=== PATIENT | female | born 1995 | race Asian ===

== ENCOUNTER 2021-03-04 21:16 | Emergency (ER) | payer OTHER, SELFPAY ==
[2021-03-04 21:25] VITALS: BP 118/68; PULSE 61; RESP 16; TEMP 36.6; O2SAT 99; BMI 20.5
--- NOTE | 2021-03-04 22:11 | ED.SKABFB ---
HPI - Skin/Abscess/Foreign Bdy General Chief complaint: Skin/Abscess/Foreign Body Stated complaint: cyst? Time Seen by Provider: 03/04/21 22:04 Source: patient Mode of arrival: ambulatory Limitations: no limitations History of Present Illness HPI narrative: Patient complaining of chronic nonhealing abscess on the left thigh for couple of months started with ingrown here and patient keeps picking on it now became granulomatous tissue with pus discharge off and on about the size of a quarter no surrounding erythema no fever no other lesions Related Data Previous Rx's Medication Instructions Recorded cephalexin 500 mg PO QID 10 Days #40 cap 03/04/21 doxycycline hyclate 100 mg PO BID #20 cap 03/04/21 mupirocin calcium 1 appl TOPICAL BID #15 g 03/04/21 Allergies Allergy/AdvReac Type Severity Reaction Status Date / Time No Known Allergies Allergy Unverified 07/11/20 17:12 [No Known Allergies*] Review of Systems Review of Systems: Yes all other systems are reviewed and are negative PMFSH Past Medical History Medical History No known health problems Social History Social History Advance Directives: No Patient : No Physical Exam Vital Signs: Vital Signs: Last Vital Signs Temp 97.8 F 03/04/21 21:25 Pulse 61 03/04/21 21:25 Resp 16 03/04/21 21:25 BP 118/68 03/04/21 21:25 Pulse Ox 99 03/04/21 21:25 Body Mass Index 20.5 Const: General: comfortable and no acute distress Orientation/consciousness: patient oriented x3 Skin: Full body images: 1. 2 cm diameter dermatitis tissue was pus discharge no surrounding erythema Neuro: General: patient oriented x3 MDM - Skin/Abscess/Foreign Bdy MDM Narrative Medical decision making narrative: Patient with small abscess with gangrenous changes on the left thigh culture was taken will discharge her home on doxycycline and Keflex Discharge Plan Discharge Clinical Impression: Abscess of skin or subcutaneous tissue Qualifiers: Site of cutaneous abscess: extremity Site of cutaneous abscess of extremity: lower extremity Laterality: left Qualified Code(s): L02.416 - Cutaneous abscess of left lower limb Patient Disposition: Home, Self-Care Instructions: Abscess (ED) Additional Instructions: Take antibiotics as advised follow up with PCP if not better Prescriptions: New doxycycline hyclate 100 mg capsule 100 mg PO BID Qty: 20 RF: 0 cephalexin 500 mg capsule 500 mg PO QID 10 Days Qty: 40 RF: 0 mupirocin calcium 2 % cream 1 appl topical BID Qty: 15 RF: 0
[2021-03-04] MEDS: cephALEXin 500 MG CAPSULE PO (22:28)
== END 2021-03-04 23:01 | disposition home or self-care (01) ==
PROVIDERS: Emergency Provider Internal Medicine
DX: L02.416 Cutaneous abscess of left lower limb (principal); F17.200 Nicotine dependence, unspecified, uncomplicated; F12.90 Cannabis use, unspecified, uncomplicated
CPT/HCPCS: 87071; 87147; 87205; 99283; 99284

== ENCOUNTER 2021-04-07 19:36 | Emergency (ER) | payer MEDICAID, SELFPAY ==
[2021-04-07 19:43] VITALS: BMI 22.4
[2021-04-07 19:49] VITALS: BP 104/65; PULSE 69; RESP 18; TEMP 37.1; O2SAT 98; BMI 22.4
[2021-04-07 20:15] LABS: COVID-19 Test Negative (Negative)
== END 2021-04-07 21:54 | disposition left against medical advice (07) ==
PROVIDERS: Emergency Provider Emergency Medicine
DX: R09.89 Other specified symptoms and signs involving the circulatory and respiratory systems (principal); R11.10 Vomiting, unspecified; Z20.822 Contact with and (suspected) exposure to COVID-19
CPT/HCPCS: 36415; 87635; 99283; 99284

== ENCOUNTER 2021-06-25 12:35 | Emergency (ER) | payer MEDICAID, SELFPAY ==
[2021-06-25 12:39] VITALS: BP 122/56; PULSE 83; RESP 16; TEMP 36.6; O2SAT 98; BMI 20.5
--- NOTE | 2021-06-25 13:19 | ED.DENTAL ---
HPI - Dental/Oral General Chief complaint: Dental/Oral Stated complaint: dental/oral Time Seen by Provider: 06/25/21 13:19 History of Present Illness HPI Narrative: Patient complains of worsening dental pain over past several days, rear upper molars on both sides are decayed and painful and she is scheduled to have them hold in several weeks but pain has been increasing over past several days bilateral, no fever no difficulty breathing or swallowing Related Data Previous Rx's Medication Instructions Recorded cephalexin 500 mg capsule 500 mg PO QID 10 Days #40 cap 03/04/21 doxycycline hyclate 100 mg capsule 100 mg PO BID #20 cap 03/04/21 mupirocin calcium 2 % topical cream 1 appl TOPICAL BID #15 g 03/04/21 acetaminophen 500 mg tablet 1,000 mg PO QID PRN #30 tab 06/25/21 amoxicillin 875 mg-potassium 1 tab PO BID 7 Days #14 tab 06/25/21 clavulanate 125 mg tablet (Augmentin) ibuprofen 600 mg tablet 600 mg PO Q6H PRN #20 tab 06/25/21 Allergies Allergy/AdvReac Type Severity Reaction Status Date / Time No Known Allergies Allergy Unverified 07/11/20 17:12 [No Known Allergies*] Review of Systems Review of Systems: Positive for dental pain Negatives are no fever no chills no dizziness no headache no ear pain no sore throat no neck pain no difficulty breathing or swallowing no facial swelling Yes all other systems are reviewed and are negative [facility] Past Medical History Source: nursing notes reviewed Medical History No known health problems Social History Social History Alcohol intake: never Substance Use Type: Marijuana Advance Directives: No Advance Directives Information Provided: No Physical Exam Vital Signs: Vital Signs: Last Vital Signs Temp 97.9 F 06/25/21 12:39 Pulse 83 06/25/21 12:39 Resp 16 06/25/21 12:39 BP 122/56 L 06/25/21 12:39 Pulse Ox 98 06/25/21 12:39 Body Mass Index 20.5 General appearance is no acute distress The face has no redness or swelling Dental exam the rear upper molars are both tender and decayed but there is no fluctuant gum abscess no swelling under the tongue no impairment of breathing and swallowing no trismus no drooling Pharynx no redness swelling or exudate, voice is normal The neck is supple Respiratory no distress Skin no rash Course Course Course Narrative: Patient with dental pain and no evidence of trismus, no difficulty breathing or swallowing is discharged to follow with dentist Discharge Plan Discharge Clinical Impression: Dental caries Patient Disposition: Home, Self-Care Additional Instructions: Call your dentist to see if there are any cancellations so you could get you dental procedure sooner Return any time if worse We are using Augmentin antibiotic to treat any underlying infection Prescriptions: New amoxicillin-pot clavulanate [Augmentin] 875-125 mg tablet 1 tab PO BID 7 Days Qty: 14 RF: 0 acetaminophen 500 mg tablet 1,000 mg PO QID PRN (Reason: pain) Qty: 30 RF: 0 ibuprofen 600 mg tablet 600 mg PO Q6H PRN (Reason: pain) Qty: 20 RF: 0 No Action doxycycline hyclate 100 mg capsule 100 mg PO BID Qty: 20 RF: 0 cephalexin 500 mg capsule 500 mg PO QID 10 Days Qty: 40 RF: 0 mupirocin calcium 2 % cream 1 appl topical BID Qty: 15 RF: 0 Interventions: ED Discharge Assessment Last Done: 06/25/21 13:46 Discharge Date/Time: 06/25/21 13:47
[2021-06-25] MEDS: Acetaminophen 325 MG TABLET 650 MG PO (13:42)
[2021-06-25] MEDS: Amoxicillin/Potassium Clav 875 MG TABLET PO (13:42)
[2021-06-25] MEDS: Ibuprofen 600 MG TABLET PO (13:42)
== END 2021-06-25 13:47 | disposition home or self-care (01) ==
PROVIDERS: Emergency Provider Emergency Medicine
DX: K02.9 Dental caries, unspecified (principal); K08.89 Other specified disorders of teeth and supporting structures; F12.90 Cannabis use, unspecified, uncomplicated
CPT/HCPCS: 99283; 99284

== ENCOUNTER 2022-04-18 12:49 | Emergency (ER) | payer MEDICAID, SELFPAY ==
[2022-04-18 13:05] VITALS: BP 111/43; PULSE 55; RESP 18; TEMP 36.8; O2SAT 100; BMI 21.4
--- NOTE | 2022-04-18 14:25 | ED.FEMALEGU ---
HPI - Female Genitourinary General Chief complaint: Urogenital-Female Stated complaint: Vaginal wound Time Seen by Provider: 04/18/22 14:25 Source: patient Mode of arrival: ambulatory Limitations: no limitations History of Present Illness HPI Narrative: Patient is a 26 year old female presenting to the emergency department today with a vaginal cyst. Patient states that 4 days ago she began to have left sided vaginal swelling and has tried to open it to drain it multiple times but has been unsuccessful. Patient denies any dizziness, lightheadedness, abdominal pain, nausea, vomiting, fever, chills, blurry vision, double vision, loss of vision, chest pain, difficulty breathing, shortness of breath, back pain, night sweats, pain with urination, increased urinary frequency, increased urinary urgency, blood in her urine or stool, syncope or a near syncopal episode, recent trauma or falls, bowel incontinence, bladder incontinence, bowel retention, bladder retention, or any other complaints at this time. Onset (ago): day(s) (4) Location of symptoms: external genitalia Severity: mild Female Urogenital Radiation: Non-Radiating Severity scale (1-10): 3 Quality of pain: dull Consistency: constant Vaginal discharge: none Vaginal bleeding: none Exacerbating factors: none Relieving factors: none Associated symptoms: denies other symptoms Treatment prior to arrival: none Related Data Previous Rx's Medication Instructions Recorded acetaminophen 500 mg tablet 1,000 mg PO QID PRN pain #30 tabs 06/25/21 ibuprofen 600 mg tablet 600 mg PO Q6H PRN pain #20 tabs 06/25/21 cephalexin 500 mg capsule 500 mg PO Q6H 7 days #28 caps 04/18/22 Allergies Allergy/AdvReac Type Severity Reaction Status Date / Time No Known Allergies Allergy Unverified 07/11/20 17:12 [No Known Allergies*] Review of Systems Constitutional: Constitutional: Reports no additional constitutional complaints, Denies chills, Denies fever(s) and Denies night sweats Eyes: Eyes: Reports no additional eye complaints, Denies blurry vision, Denies change in vision, Denies diplopia, Denies eye discharge, Denies loss of vision and Denies eye pain ENT: Denies dizziness Cardiovascular: Cardiovascular: Reports no additional cardiovascular complaints, Denies chest pain, Denies lightheadedness, Denies Loss of Consciousness and Denies dyspnea Respiratory: Respiratory: Reports no additional respiratory complaints and Denies dyspnea Gastrointestinal: Gastrointestinal: Reports no additional gastrointestinal complaints, Denies abdominal pain, Denies melena, Denies hematochezia, Denies change in bowel habits and Denies change in stool character Genitourinary: Genitourinary: Denies hematuria, Denies urinary frequency, Denies dysuria, Denies urinary incontinence, Denies urinary hesitancy and Denies urinary urgency Comments: left sided vaginal swelling Musculoskeletal: Musculoskeletal: Reports no additional musculoskeletal complaints, Denies numbness and Denies tingling Neurologic: Denies dizziness, Denies loss of vision, Denies numbness and Denies tingling Psychiatric: Psychiatric: Reports no additional psychiatric complaints Endocrine: Endocrine: Reports no additional endocrine complaints Hematologic/Lymphatic: Hematologic/Lymphatic: Reports no additional hematologic/lymphatic complaints Allergic/Immunologic: Allergic/Immunologic: Reports no additional allergic/immunologic complaints PMFSH Past Medical History Attestation statement: The following information was validated with the patient. Source: old records reviewed Medical History No known health problems Social History Social History Alcohol intake: never Substance Use Type: Marijuana Advance Directives: No Advance Directives Information Provided: No Patient : No Physical Exam Vital Signs: Vital Signs: Last Vital Signs Temp 98.2 F 04/18/22 13:05 Pulse 55 04/18/22 13:05 Resp 18 04/18/22 13:05 BP 111/43 L 04/18/22 13:05 Pulse Ox 100 04/18/22 13:05 O2 Del Method 04/18/22 13:05 BMI result Body Mass Index 21.4 Const: General: cooperative, no acute distress, alert and awake Nutritional Appearance: well nourished Orientation/consciousness: patient oriented x3 Limitations: no limitations HEENT: Head: Yes normal to inspection and Yes atraumatic Ears: hearing grossly normal bilaterally and external ears normal General nose exam: Normal external nose present, no nasal discharge noted and no epistaxis Face and sinus: Yes normal facial exam, No abrasion and No laceration Mouth: Normal oral and palatal mucosa present, no drooling and no muffled voice Eyes: General: appearance normal, both eyes and all related structures Periorbital: periorbital findings normal Eyelids: Yes eyelids normal Conjunctivae: conjunctivae normal Pupils: Equal, round and reactive pupils present EOM: EOMs intact bilaterally Neck: Neck: Yes normal visual inspection, Yes full ROM and Yes no lymphadenopathy Chest: Chest palpation & inspection: normal inspection of the chest Resp: Effort & Inspection: normal respiratory effort and able to speak in complete sentences Auscultation: clear to auscultation bilaterally Cardio: Rate: regular rate Rhythm: regular rhythm GI: Inspection: Yes normal to inspection : Other: left sided labial swelling with large fluctuant area, consistent with abscess Neuro: General: patient oriented x3 and moves all extremities Cranial nerves: Yes Equal, round and reactive pupils present Cognition (Neuro): normal cognition Motor exam (neuro): 5/5 motor strength present throughout Sensory Exam: Normal double simultaneous stimulation for sensation Coordination: [id number] test normal Extrem: General: Yes normal to inspection, Yes full ROM and Yes capillary refill normal Psych: Appearance: grossly normal Mental Status: mental status grossly normal Affect: normal affect Attitude: cooperative Thought process: Normal thought process present Thought content: Normal thought content present Insight: Good insight present (Psych) MDM - Female Genitourinary MDM Narrative Medical decision making narrative: Patient is a 26 year old female presenting to the emergency department today with left labial swelling. Patient's physical exam showed left labial swelling with an obvious abscess. I explained my physical exam findings to the patient. I answered all questions asked by the patient. Incision and drainage was attempted however, the patient could not tolerate the squeezing of the incised area. I recommended the patient take her oral ABX as perscribed and she follow up with her full stack software engineer. I stressed the importance of the patient taking her medication as prescribed. I stressed the importance of the patient following up with her primary care provider and an OBGYN. I stressed the importance of the patient returning to the emergency department immediately if her symptoms were to worsen or if she were to develop any dizziness, shortness of breath, difficulty breathing, chest pain, blurry vision, loss of vision, nausea, vomiting, abdominal pain, fever, chills, back pain, or any other complaints. Patient verbalized agreement and understanding with this treatment plan and discharge. Differential Diagnosis Differential diagnosis: Likely cyst of Bartholin's gland (left labial abscess) Medical Records Attestation: I reviewed the patient's medical records. Procedures Abscess I/D Site: other (left labia) Local Anesthetic: lidocaine 1% Amount of anesthesia used (mL): 5 Technique: incised with blade Amount of fluid expressed (mL): 25 Sent for culture/gram staining?: No Irrigation: No Packing used?: none Complications: other (patient did not tolerate milking of the abscess to remove the remainder of the pus) Discharge Plan Discharge Clinical Impression: Abscess of vagina Patient Disposition: Home, Self-Care Instructions: Abscess (ED), Abscess Incision and Drainage (DC) Additional Instructions: Follow up with your primary care provider and your full stack software engineer. Return to the emergency department immediately if your symptoms worsen or if you develop any dizziness, shortness of breath, difficulty breathing, chest pain, blurry vision, loss of vision, nausea, vomiting, abdominal pain, fever, chills, back pain, or any other complaints. Prescriptions: New cephalexin 500 mg capsule 500 mg PO Q6H 7 Days Qty: 28 0RF Continued acetaminophen 500 mg tablet 1,000 mg PO QID PRN (Reason: pain) Qty: 30 0RF ibuprofen 600 mg tablet 600 mg PO Q6H PRN (Reason: pain) Qty: 20 0RF Discontinued doxycycline hyclate 100 mg capsule 100 mg PO BID Qty: 20 0RF cephalexin 500 mg capsule 500 mg PO QID 10 Days Qty: 40 0RF mupirocin calcium 2 % cream 1 appl topical BID Qty: 15 0RF amoxicillin-pot clavulanate [Augmentin] 875-125 mg tablet 1 tab PO BID 7 Days Qty: 14 0RF Referrals: [facility] [Primary Care Provider] - Messi Webb MD [Physician] - (Call first thing Wednesday morning to schedule an appointment. ) Interventions: ED Discharge Assessment Last Done: 04/18/22 15:13 Discharge Date/Time: 04/18/22 15:14 Print Language: Nepalese
[2022-04-18] MEDS: Lidocaine HCl 1 % MPF 5 ML VIAL SUBCUT (15:10)
== END 2022-04-18 15:14 | disposition home or self-care (01) ==
PROVIDERS: Emergency Provider Emergency Medicine Emergency Medical Services
DX: N76.0 Acute vaginitis (principal); Z79.899 Other long term (current) drug therapy
CPT/HCPCS: 56405; 99283; 99284